=== PATIENT | male | born 1970 | race Caucasian/White ===

== ENCOUNTER 2018-03-07 02:14 | Emergency (ER) | payer OTHER ==
[~2018-03-07] VITALS: Ht 182.9 cm; Wt 76.4 kg
[~2018-03-07 02:14] MED LIST: AUGMENTIN875TAB OR; AUGMENTIN875TAB PO; FLEXERIL OR; FLEXERIL PO; FLEXERIL10 MG PO; IMITREX25 MG PO; KEFLEX500 MG PO; NAPROSYN500 MG OR; NAPROSYN500 MG PO; NAPROXEN500 MG PO; NO CURRENT MEDS; PENICILLN VK250 MG PO; PERCOCET 5/325M1 TAB PO; ZANAFLEX2 MG PO
[2018-03-07 05:30] VITALS: BP 124/77
== END 2018-03-07 05:30 | disposition home or self-care (01) | DRG 999 ==
LOC: ED 02:14
PROC: 2W3CX1Z Immobilization of Right Lower Arm using Splint (ICD-10-PCS; principal; 2018-03-07)
DX: S62.522B Displaced fracture of distal phalanx of left thumb, initial encounter for open fracture (principal); S52.611A Displaced fracture of right ulna styloid process, initial encounter for closed fracture; M54.9 Dorsalgia, unspecified; F17.210 Nicotine dependence, cigarettes, uncomplicated; W11.XXXA Fall on and from ladder, initial encounter; Y93.H2 Activity, gardening and landscaping; Y92.007 Garden or yard of unspecified non-institutional (private) residence as the place of occurrence of the external cause

== ENCOUNTER 2019-07-18 22:05 | Emergency (ER) | payer OTHER ==
[~2019-07-18] VITALS: Ht 182.9 cm; Wt 81.4 kg
[2019-07-18] MEDS ORDERED: STERAPRED DS10 MG PO (22:54)
[2019-07-18 23:23] VITALS: BP 115/72
== END 2019-07-18 23:23 | disposition home or self-care (01) ==
LOC: ED 22:05
DX: L25.9 Unspecified contact dermatitis, unspecified cause (principal); F17.200 Nicotine dependence, unspecified, uncomplicated

== ENCOUNTER 2020-03-11 19:57 | Emergency (ER) | payer OTHER ==
[~2020-03-11 19:57] MED LIST changes: +STERAPRED DS10 MG PO
[2020-03-11] MEDS ORDERED: ULTRAM50 M1 PO (21:16)
[2020-03-11 21:25] VITALS: BP 101/54
== END 2020-03-11 21:25 | disposition home or self-care (01) | DRG 563 ==
LOC: ED 19:57
DX: S93.601A Unspecified sprain of right foot, initial encounter (principal); F17.210 Nicotine dependence, cigarettes, uncomplicated; W22.09XA Striking against other stationary object, initial encounter; Y92.512 Supermarket, store or market as the place of occurrence of the external cause

== ENCOUNTER 2020-06-05 06:12 | Emergency (ER) | payer OTHER ==
[~2020-06-05] VITALS: Ht 185.4 cm; Wt 80.9 kg
[~2020-06-05 06:12] MED LIST changes: +ULTRAM50 M1 PO
[2020-06-05 06:46] LABS: HEMOGLOBIN 14.6 g/dl (14.0-18.0); IMMATURE GRANULOCYTES 0.2 % (0.0-5.0); MEAN CELL VOLUME 96.8 fL CALC (80.0-100.0); MEAN CORPUSCULAR HGB 31.4 pG CALC (26.0-32.0); MEAN CORPUSCULAR HGB CONC 32.4 g/dL CAL (32.0-36.0); NEUT# 5.64 thou/uL (1.82-7.42); RED BLOOD COUNT 4.65 mill/uL (4.70-6.10); RED CELL DISTRI WIDTH 12.8 % (11.5-15.5)
[2020-06-05 07:07] LABS: ALBUMIN 4.3 g/dL (3.2-5.0); ALKALINE PHOSPHATASE 66 u/l (38-126); AMYLASE 45 u/l (30-110); ANION GAP 10 (6-22 (CALC)); BILIRUBIN, TOTAL 0.4 mg/dL (0.0-1.4); BUN 12 mg/dL (9-20); BUN/CREATININE RATIO 15 (12-20 (CALC)); CARBON DIOXIDE 27 mmol/l (22-30); CHLORIDE 106 mmol/l (95-108); CREATININE 0.8 mg/dL (0.7-1.3); GFR > 60 ML/MIN (>=60 (CALC)); GFR FOR AFR.AMER. > 60 ML/MIN (>=60 (CALC)); LIPASE 46 u/l (23-300); SGOT/AST 23 u/l (17-59); SODIUM 138 mmol/l (137-146); TOTAL PROTEIN 6.9 g/dL (6.3-8.2)
[2020-06-05 08:01] LABS: URINE BILIRUBIN - DIPSTICK NEGATIVE (NEGATIVE); URINE BLOOD DIPSTICK TRACE-INTACT (NEGATIVE); URINE COLOR YELLOW; URINE GLUCOSE - DIPSTICK NEGATIVE (NEGATIVE); URINE KETONE NEGATIVE (NEGATIVE); URINE LEUK ESTERASE NEGATIVE (NEGATIVE); URINE NITRITE - DIPSTICK NEGATIVE (Negative); URINE PROTEIN - DIPSTICK NEGATIVE (NEG-TRACE); URINE SPECIFIC GRAVITY >=1.030; URINE UROBILINOGEN - DIPSTICK 0.2 E.U./dL (0.2)
[2020-06-05 10:33] VITALS: BP 98/54
[2020-06-05] MEDS ORDERED: PREVACID30 M3 PO (10:58)
== END 2020-06-05 11:00 | disposition home or self-care (01) ==
LOC: ED 06:12
PROVIDERS: Family Medicine
DX: K59.00 Constipation, unspecified (principal); K29.70 Gastritis, unspecified, without bleeding; F17.210 Nicotine dependence, cigarettes, uncomplicated
CPT/HCPCS: Q9967

== ENCOUNTER 2021-03-19 11:07 | Emergency (ER) | payer OTHER ==
[~2021-03-19] VITALS: Ht 185.4 cm; Wt 80.9 kg
[~2021-03-19 11:07] MED LIST changes: +PREVACID30 M3 PO
[2021-03-19 12:09] LABS: HEMATOCRIT 50.2 % (39.0-50.0); HEMOGLOBIN 16.3 g/dl (14.0-18.0); IMMATURE GRANULOCYTES 0.2 % (0.0-5.0); MEAN CELL VOLUME 98.4 fL CALC (80.0-100.0); MEAN CORPUSCULAR HGB CONC 32.5 g/dL CAL (32.0-36.0); NEUT# 5.53 thou/uL (1.82-7.42); RED BLOOD COUNT 5.1 mill/uL (4.70-6.10)
[2021-03-19 12:32] LABS: ALBUMIN 4.3 g/dL (3.2-5.0); ALKALINE PHOSPHATASE 53 u/l (38-126); AMYLASE 64 u/l (30-110); ANION GAP 10 (6-22 (CALC)); BUN 12 mg/dL (9-20); BUN/CREATININE RATIO 17 (12-20 (CALC)); CARBON DIOXIDE 27 mmol/l (22-30); CHLORIDE 104 mmol/l (95-108); CREATININE 0.7 mg/dL (0.7-1.3); ETHYL ALCOHOL 0 mg/dl (0-30); GFR > 60 ML/MIN (>=60 (CALC)); GFR FOR AFR.AMER. > 60 ML/MIN (>=60 (CALC)); LIPASE 48 u/l (23-300); POTASSIUM 4.5 mmol/l (3.5-5.1); SGOT/AST 33 u/l (17-59); SODIUM 136 mmol/l (137-146); TOTAL PROTEIN 7.6 g/dL (6.3-8.2)
[2021-03-19 12:35] LABS: BILIRUBIN, TOTAL 0.7 mg/dL (0.0-1.4)
[2021-03-19 12:44] LABS: ACT PARTIAL THROMBO TIME 25.4 SECONDS (20.0-32.5)
[2021-03-19 13:45] LABS: URINE BILIRUBIN - DIPSTICK NEGATIVE (NEGATIVE); URINE BLOOD DIPSTICK NEGATIVE (NEGATIVE); URINE COLOR YELLOW; URINE GLUCOSE - DIPSTICK NEGATIVE (NEGATIVE); URINE KETONE NEGATIVE (NEGATIVE); URINE LEUK ESTERASE NEGATIVE (NEGATIVE); URINE PROTEIN - DIPSTICK NEGATIVE (NEG-TRACE); URINE UROBILINOGEN - DIPSTICK 0.2 E.U./dL (0.2)
[2021-03-19 13:46] LABS: URINE NITRITE - DIPSTICK NEGATIVE (Negative)
[2021-03-19] MEDS ORDERED: TORADOL PO (14:44)
[2021-03-19 14:50] VITALS: BP 130/74
== END 2021-03-19 15:00 | disposition home or self-care (01) ==
LOC: ED 11:07
DX: R10.11 Right upper quadrant pain (principal); F14.10 Cocaine abuse, uncomplicated; F17.200 Nicotine dependence, unspecified, uncomplicated
CPT/HCPCS: Q9967

== ENCOUNTER 2022-03-01 18:05 | Emergency (ER) | payer OTHER ==
[~2022-03-01] VITALS: Ht 185.4 cm; Wt 79.3 kg
[~2022-03-01 18:05] MED LIST changes: +TORADOL PO
[2022-03-01 18:12] VITALS: BP 147/94
[2022-03-01 18:16] VITALS: BP 133/96
[2022-03-01 18:32] VITALS: BP 112/88
== END 2022-03-01 19:00 | disposition left against medical advice (07) ==
LOC: ED 18:05
DX: R10.31 Right lower quadrant pain (principal); R11.2 Nausea with vomiting, unspecified; F17.200 Nicotine dependence, unspecified, uncomplicated; Z91.19 Patient's noncompliance with other medical treatment and regimen

== ENCOUNTER 2022-05-27 17:56 | Emergency (ER) | payer OTHER ==
[~2022-05-27] VITALS: Ht 185.4 cm; Wt 73.0 kg
[2022-05-27 18:07] VITALS: BP 133/91
[2022-05-27 18:15] VITALS: BP 129/91
[2022-05-27 18:30] VITALS: BP 117/88
[2022-05-27 18:46] VITALS: BP 113/97
[2022-05-27] MEDS ORDERED: ULTRAM50 M1 PO (18:51)
[2022-05-27] MEDS ORDERED: BACTRIM DS1 TAB PO (18:51)
[2022-05-27] MEDS ORDERED: SILVADENE1 % EX (18:51)
== END 2022-05-27 19:51 | disposition home or self-care (01) ==
LOC: ED 17:56
DX: S71.142A Puncture wound with foreign body, left thigh, initial encounter (principal); W26.8XXA Contact with other sharp object(s), not elsewhere classified, initial encounter; W45.8XXA Other foreign body or object entering through skin, initial encounter; S70.352A Superficial foreign body, left thigh, initial encounter; L25.9 Unspecified contact dermatitis, unspecified cause; L03.116 Cellulitis of left lower limb

== ENCOUNTER 2022-07-03 01:43 | Emergency (ER) | payer OTHER ==
[~2022-07-03] VITALS: Ht 185.4 cm; Wt 77.0 kg
[~2022-07-03 01:43] MED LIST changes: +BACTRIM DS1 TAB PO; +SILVADENE1 % EX
[2022-07-03 01:57] VITALS: BP 134/92
[2022-07-03 02:00] VITALS: BP 138/92
[2022-07-03 02:20] LABS: IMMATURE GRANULOCYTES 0.1 % (0.0-5.0); MEAN CELL VOLUME 96.7 fL CALC (80.0-100.0); MEAN CORPUSCULAR HGB 32.8 pG CALC (26.0-32.0); MEAN CORPUSCULAR HGB CONC 33.9 g/dL CAL (32.0-36.0); NEUT# 4.65 thou/uL (1.82-7.42); RED BLOOD COUNT 4.27 mill/uL (4.70-6.10); RED CELL DISTRI WIDTH 12.7 % (11.5-15.5)
[2022-07-03 02:26] LABS: ALBUMIN 4.6 g/dL (3.2-5.0); ALKALINE PHOSPHATASE 73 u/l (38-126); BILIRUBIN, TOTAL 0.6 mg/dL (0.0-1.4); BUN 14 mg/dL (9-20); BUN/CREATININE RATIO 17 (12-20 (CALC)); CHLORIDE 107 mmol/l (95-108); CREATININE 0.9 mg/dL (0.7-1.3); ETHYL ALCOHOL 0 mg/dl (0-30); GFR FOR AFR.AMER. > 60 ML/MIN (>=60 (CALC)); GFR OTHER RACES > 60 ML/MIN (>=60 (CALC)); SGOT/AST 31 u/l (17-59); SODIUM 137 mmol/l (137-146); TOTAL PROTEIN 7.4 g/dL (6.3-8.2)
[2022-07-03 02:29] LABS: HEMATOCRIT 41.3 % (39.0-50.0)
[2022-07-03 02:30] LABS: ANION GAP 14 (6-22 (CALC)); CARBON DIOXIDE 19 mmol/l (22-30); POTASSIUM 3.4 mmol/l (3.5-5.1)
[2022-07-03 03:07] VITALS: BP 138/92
== END 2022-07-03 03:15 | DRG 605 ==
LOC: ED 01:43
PROVIDERS: Family Medicine
DX: S00.83XA Contusion of other part of head, initial encounter (principal); S60.011A Contusion of right thumb without damage to nail, initial encounter; F17.200 Nicotine dependence, unspecified, uncomplicated; Y04.0XXA Assault by unarmed brawl or fight, initial encounter